=== PATIENT | female | born 2000 | race Caucasian/White ===

== ENCOUNTER 2021-11-24 13:33 | Outpatient (REF) | payer MEDICARE, SELFPAY ==
[2021-11-24 14:17] LABS: COVID-19 Test Negative (Negative)
== END 2021-11-24 13:34 | disposition home or self-care (01) ==
LOC: HO.LAB 13:33
PROVIDERS: Visit Provider Internal Medicine
DX: Z20.822 Contact with and (suspected) exposure to COVID-19 (principal)
CPT/HCPCS: 87635; C9803

== ENCOUNTER 2022-06-18 21:21 | Emergency (ER) | payer MEDICARE, MEDICAID, SELFPAY ==
--- NOTE | ~2022-06-18 | CT_ITS ---
EXAMINATION: NONCONTRAST HEAD CT NONCONTRAST CERVICAL SPINE CT INDICATION INFORMATION: Fall. Neck pain. COMPARISON: None TECHNIQUE: Separate noncontrast CT examinations of the head and cervical spine were performed. Coronal and sagittal images were created for each examination at the technologist workstation. This CT examination was performed using dose optimization techniques as appropriate, variously including the following: *Automated exposure control *Adjustment of mA and/or kV according to patient size (this includes techniques or standardized protocols for targeted exams where dose is matched to indication/reason for exam; i.e. extremities or head) *Use of iterative reconstruction technique DLP: 1371 mGy-cm FINDINGS: Head: There is no evidence of acute intracranial hemorrhage or territorial infarction. No abnormal mass effect or midline shift is seen. Echevarria to white matter differentiation is well preserved. No extra-axial fluid collections are identified. No hydrocephalus. No significant volume loss. There is no abnormal attenuation within the brain parenchyma. No acute osseous or soft tissue abnormality. Mastoid air cells are clear. Secretions present in the bilateral maxillary sinuses. Cervical spine: There is anatomic alignment of the vertebral bodies and posterior elements. The atlantoaxial and atlantooccipital articulations are intact. Vertebral body heights and intervertebral disc spaces are maintained. No evidence of acute fracture. No prevertebral soft tissue swelling. Visualized portions of the lung apices are unremarkable. The thyroid gland is unremarkable. CT/CT cervical spine wo IV con IMPRESSION: * No acute intracranial findings. * No acute fracture or malalignment of the cervical spine.
--- NOTE | ~2022-06-18 | CT_ITS ---
EXAMINATION: NONCONTRAST HEAD CT NONCONTRAST CERVICAL SPINE CT INDICATION INFORMATION: Fall. Neck pain. COMPARISON: None TECHNIQUE: Separate noncontrast CT examinations of the head and cervical spine were performed. Coronal and sagittal images were created for each examination at the technologist workstation. This CT examination was performed using dose optimization techniques as appropriate, variously including the following: *Automated exposure control *Adjustment of mA and/or kV according to patient size (this includes techniques or standardized protocols for targeted exams where dose is matched to indication/reason for exam; i.e. extremities or head) *Use of iterative reconstruction technique DLP: 1371 mGy-cm FINDINGS: Head: There is no evidence of acute intracranial hemorrhage or territorial infarction. No abnormal mass effect or midline shift is seen. Echevarria to white matter differentiation is well preserved. No extra-axial fluid collections are identified. No hydrocephalus. No significant volume loss. There is no abnormal attenuation within the brain parenchyma. No acute osseous or soft tissue abnormality. Mastoid air cells are clear. Secretions present in the bilateral maxillary sinuses. Cervical spine: There is anatomic alignment of the vertebral bodies and posterior elements. The atlantoaxial and atlantooccipital articulations are intact. Vertebral body heights and intervertebral disc spaces are maintained. No evidence of acute fracture. No prevertebral soft tissue swelling. Visualized portions of the lung apices are unremarkable. The thyroid gland is unremarkable. CT/CT head/brain wo IV con IMPRESSION: * No acute intracranial findings. * No acute fracture or malalignment of the cervical spine.
--- NOTE | ~2022-06-18 | CT_ITS ---
EXAMINATION CT CHEST, ABDOMEN AND PELVIS WITHOUT CONTRAST CLINICAL INFORMATION: Trauma COMPARISON: None. TECHNIQUE: Multidetector volumetric CT imaging of the chest, abdomen and pelvis was obtained without use of intravenous contrast. Coronal and sagittal reformats were reviewed. This CT examination was performed using dose optimization techniques as appropriate, variously including the following: *Automated exposure control *Adjustment of mA and/or kV according to patient size (this includes techniques or standardized protocols for targeted exams where dose is matched to indication/reason for exam; i.e. extremities or head) *Use of iterative reconstruction technique DLP: 1872 mGy-cm. FINDINGS: CHEST LUNGS/PLEURA: The lungs are clear with no evidence of inflammation or nodules. Trace right pleural effusion. MEDIASTINUM/MUKESH: Heart normal in size without pericardial effusion. Great vessels normal caliber. No mediastinal, hilar or supraclavicular lymphadenopathy. CHEST WALL/AXILLA: Unremarkable. ABDOMEN/PELVIS HEPATOBILIARY: Liver normal in size, contour and morphology. No suspicious lesions. No intra or extrahepatic biliary dilation. Gallbladder unremarkable. PANCREAS: Unremarkable. SPLEEN: Unremarkable. ADRENAL GLANDS: Unremarkable. KIDNEYS, URETERS AND BLADDER: Kidneys normal in size, axis and morphology. No hydronephrosis or urinary calculi. Ureters normal in course and caliber. Bladder grossly unremarkable.. GASTROINTESTINAL TRACT: No bowel related abnormalities. PELVIC VISCERA: There is a 4.3 cm right adnexal soft tissue in bulk fat containing mass with associated coarse calcifications most compatible with a dermoid. Anterior to the uterus are 2 adjacent simple cysts versus a single large complex cyst containing a thin septation. If area representative of 2 cysts, the cysts measure 10.1 cm and 3.5 cm. If area representative of a single septate cyst, and measures up to 11.4 cm. This finding is too large to ascertain which adnexa it arises from. LYMPH NODES: No lymphadenopathy. PERITONEUM/BODY WALL: Unremarkable. VASCULAR STRUCTURES: Unremarkable for age. OSSEOUS STRUCTURES No acute or suspicious osseous abnormalities. Bilateral L5 spondylolysis without spondylolisthesis. Small endplate osteophytes present at L5-S1. There is sclerosis along the bilateral sacroiliac joints and accompanying vacuum phenomena. No erosive changes. CT/CT abdomen pelvis wo IV con IMPRESSION: * No acute traumatic injury within the chest, abdomen or pelvis. * No fractures. * Trace right pleural effusion. * There are 2 adjacent simple cysts versus a single large thinly septated cyst anterior to the uterus measuring up to 11.4 cm. There is concern for low-grade cystic neoplasm. Recommend gynecology consult and MRI pelvis with contrast if clinically warranted. Ultrasound will be unable to fully characterize these lesions due to their large size. * In addition, there is a 4.3 cm right adnexal dermoid. Attention on follow-up MRI. If not resected, the ACR recommends annual follow-up for dermoids of this size. * Bilateral chronic sacroiliac arthrosis and/or sacroiliitis.
--- NOTE | ~2022-06-18 | CT_ITS ---
EXAMINATION CT CHEST, ABDOMEN AND PELVIS WITHOUT CONTRAST CLINICAL INFORMATION: Trauma COMPARISON: None. TECHNIQUE: Multidetector volumetric CT imaging of the chest, abdomen and pelvis was obtained without use of intravenous contrast. Coronal and sagittal reformats were reviewed. This CT examination was performed using dose optimization techniques as appropriate, variously including the following: *Automated exposure control *Adjustment of mA and/or kV according to patient size (this includes techniques or standardized protocols for targeted exams where dose is matched to indication/reason for exam; i.e. extremities or head) *Use of iterative reconstruction technique DLP: 1872 mGy-cm. FINDINGS: CHEST LUNGS/PLEURA: The lungs are clear with no evidence of inflammation or nodules. Trace right pleural effusion. MEDIASTINUM/MUKESH: Heart normal in size without pericardial effusion. Great vessels normal caliber. No mediastinal, hilar or supraclavicular lymphadenopathy. CHEST WALL/AXILLA: Unremarkable. ABDOMEN/PELVIS HEPATOBILIARY: Liver normal in size, contour and morphology. No suspicious lesions. No intra or extrahepatic biliary dilation. Gallbladder unremarkable. PANCREAS: Unremarkable. SPLEEN: Unremarkable. ADRENAL GLANDS: Unremarkable. KIDNEYS, URETERS AND BLADDER: Kidneys normal in size, axis and morphology. No hydronephrosis or urinary calculi. Ureters normal in course and caliber. Bladder grossly unremarkable.. GASTROINTESTINAL TRACT: No bowel related abnormalities. PELVIC VISCERA: There is a 4.3 cm right adnexal soft tissue in bulk fat containing mass with associated coarse calcifications most compatible with a dermoid. Anterior to the uterus are 2 adjacent simple cysts versus a single large complex cyst containing a thin septation. If veterans employment representative of 2 cysts, the cysts measure 10.1 cm and 3.5 cm. If veterans employment representative of a single septate cyst, and measures up to 11.4 cm. This finding is too large to ascertain which adnexa it arises from. LYMPH NODES: No lymphadenopathy. PERITONEUM/BODY WALL: Unremarkable. VASCULAR STRUCTURES: Unremarkable for age. OSSEOUS STRUCTURES No acute or suspicious osseous abnormalities. Bilateral L5 spondylolysis without spondylolisthesis. Small endplate osteophytes present at L5-S1. There is sclerosis along the bilateral sacroiliac joints and accompanying vacuum phenomena. No erosive changes. CT/CT chest wo IV con IMPRESSION: * No acute traumatic injury within the chest, abdomen or pelvis. * No fractures. * Trace right pleural effusion. * There are 2 adjacent simple cysts versus a single large thinly septated cyst anterior to the uterus measuring up to 11.4 cm. There is concern for low-grade cystic neoplasm. Recommend gynecology consult and MRI pelvis with contrast if clinically warranted. Ultrasound will be unable to fully characterize these lesions due to their large size. * In addition, there is a 4.3 cm right adnexal dermoid. Attention on follow-up MRI. If not resected, the ACR recommends annual follow-up for dermoids of this size. * Bilateral chronic sacroiliac arthrosis and/or sacroiliitis.
[2022-06-18 21:22] VITALS: BP 157/89; PULSE 97; RESP 16; TEMP 36.6; O2SAT 97; BMI 48.0
--- OUTSIDE RECORDS SUMMARY | 2022-06-18 22:37 | XMS_ITS | Continuity of Care Document ---
Author Name Unknown Organization [facility] ter Address [address] [place] [id number]- Care Team Providers Care Qualitative Field Project Manager Name Role Phone Timothy DU, Stephanie Vasquez Primary Care Physician Encounter [facility] Date(s): 10/24/19 - 10/25/[address] [id number]- [facility] Discharge Disposition: A-D/C Walkout Attending Physician: Not on Staff, Attending MD Admitting Physician: Not on Staff, Admitting MD Referring Physician: Not on Staff, Referring MD Allergies, Adverse Reactions, Alerts Substance Reaction Severity Status NKA Active Immunizations Given and Recorded Vaccine Date Status Refusal Reason influenza virus vaccine, inactivated 12/18/13 Give n influenza virus vaccine, inactivated 12/06/12 Give n influenza virus vaccine, inactivated 1 01/30/10 Gi gris Human Papillomavirus Vaccine 01/06/13 Given Human Papillomavirus Vaccine 09/05/12 Given Human Papillomavirus Vaccine 2 07/04/12 Given tetanus/diphtheria/pertussis, acel(Tdap) 01/06/13 Given Meningococcal Conjugate Vaccine 01/06/13 Given pneumococcal 13-valent vaccine 3 07/04/12 Given Varicella Virus Vaccine 4 06/06/10 Given Varicella Virus Vaccine 03/15/01 Given influ virus vac, H1N1, inactive(oldterm) 5 03/26/09 Given influ virus vac, H1N1, inactive(oldterm) 6 01/28/09 Given Influenza Vaccine (oldterm) 7 01/28/09 Given Influenza Inactive (IM) (oldterm) 02/10/06 Given Measles/Mumps/Rubella Virus Vaccine 01/28/05 Given Measles/Mumps/Rubella Virus Vaccine 03/15/01 Given Haemophilus B conjugate (HbOC) vaccine 01/28/05 Gi gris Haemophilus B conjugate (HbOC) vaccine 00 Gi gris Haemophilus B conjugate (HbOC) vaccine 00 Gi gris Haemophilus B conjugate (HbOC) vaccine 00 Gi gris Poliovirus Vaccine, Inactivated 01/28/05 Given Poliovirus Vaccine, Inactivated 00 Given Poliovirus Vaccine, Inactivated 00 Given Poliovirus Vaccine, Inactivated 00 Given diphtheria/tetanus/pertussis, acel(DTaP) 01/28/05 Given diphtheria/tetanus/pertussis, acel(DTaP) 10/12/01 Given diphtheria/tetanus/pertussis, acel(DTaP) 00 Given diphtheria/tetanus/pertussis, acel(DTaP) 00 Given diphtheria/tetanus/pertussis, acel(DTaP) 00 Given Hepatitis B Vaccine (old term) 10/12/01 Given Hepatitis B Vaccine (old term) 00 Given Hepatitis B Vaccine (old term) 00 Given pneumococcal 7-valent vaccine 00 Given pneumococcal 7-valent vaccine 00 Given pneumococcal 7-valent vaccine 00 Given 1Admin Note: VIS GIVEN 2Admin Note: VIS Date: 05-06-11 3Admin Note: VIS Date: 01/29/2012 4Admin Note: vis 05/26/07 5Admin Note: VIS GIVEN [id number] 6Admin Note: VIS GIVEN 2008 7Admin Note: VIS GIVEN 2008- Medications Aerochamber See Instructions, # 1 each, Maintenance, Use with albuterol MDI, 06/10/17 16:08:04 EDT, Compound Start Date: 06/10/17 Status: Ordered albuterol CFC free 90 mcg/inh inhalation aerosol 2, puffs, Inhalation, Every 4 hours, PRN, # 8 Gm, Refills 0, Maintenance, 06/10/17 13:46:59 EDT, Aerosol, Compound Start Date: 06/10/17 Status: Ordered albuterol CFC free 90 mcg/inh inhalation aerosol 2, puffs, Inhalation, Every 4 hours, PRN, # 1 each, Refills 0, Tot. Refills 0, Maintenance, 06/10/17 16:07:56 EDT, Aerosol, Print Requisition, Compound Start Date: 06/10/17 Status: Ordered Bentyl 10 mg oral capsule 1 capsule = 10 mg, By Mouth, 2 times a day, # 60 capsule, 6 Refills, Maintenance, 08/02/17 9:20:27 EDT Start Date: 08/02/17 Stop Date: 02/28/18 Status: Ordered ibuprofen 600 mg oral tablet 1 tablet = 600 mg, By Mouth, Every 8 hours, # 30 tablet, 0 Refills, Maintenance, Tablet Start Date: 11/23/12 Status: Ordered Loratadine 10 mg, By Mouth, Daily, Refills 0, Maintenance, 03/03/17 12:50:27 EST Start Date: 03/03/17 Status: Ordered Sertraline = 75 mg, By Mouth, Daily, 0 Refills, Maintenance, 03/03/17 12:50:13 EST Start Date: 03/03/17 Status: Ordered Problem List Condition Effective Dates Status Health Status Inform ant Abdominal pain(Confirmed) Active Acute depression(Confirmed) Active Asperger syndrome dx by Dr. Griffith July 2011(Confirmed) Active Asperger's syndrome(Confirmed) Active Asthma(Confirmed) Active Central obesity(Confirmed) Active Mild intermittent asthma(Confirmed) Active Obesity(Confirmed) Active Seasonal allergy(Confirmed) Active Sleep disorder breathing(Confirmed) Active Vital Signs Most recent to oldest [Reference Range]: 1 2 Oxygen Saturation [94-100 %] 100 % (10/24/19 11:07 PM) 100 % (10/24/19 8:59 PM) Pulse Rate [55-90 bpm] 93 bpm *H* (10/24/19 11:07 PM) 108 bpm *H* (10/24/19 8:59 PM) Blood Pressure [90-138/55-84 mm Hg] 138/ 91mm Hg (10/24/19 11:07 PM) 148/102mm Hg *H* (10/24/19 8:59 PM) Respiratory Rate [16-30 br/min] 16 br/mi n (10/24/19 11:07 PM) 22 br/min (10/24/19 8:59 PM) Temperature [96.8-100.4 DegF] 99.1 DegF (10/24/19 11:07 PM) 98.9 DegF (10/24/19 8:59 PM) Mode of Delivery (Oxygen) Room air (10/24/19 11:07 PM) room air (10/24/19 8:59 PM) Blood pressure sites Arm, right (10/24/19 11:07 PM) Arm, right (10/24/19 8:59 PM) Temperature Route Oral (10/24/19 11:07 PM) Oral (10/24/19 8:59 PM) Social History Social History Type Response Smoking Status Never smoker; Tobacc o user in household: Yes entered on: 08/02/17 Sex
--- NOTE | 2022-06-18 22:44 | ED_ITS ---
HPI - Head Injury General Chief complaint: Head Injury Stated complaint: fell hit head 4/6 Time Seen by Provider: 06/18/22 22:26 Source: patient Mode of arrival: ambulatory Limitations: no limitations History of Present Illness HPI Narrative: This is a 22-year-old female history of obesity presenting to the emergency department status post slip and fall while getting out of the shower, patient tells me she slipped and then tripped on a dust ramirez, she hit her head and lost consciousness for a few minutes woke up on the ground. Was able to get up on her own. No one witnessed this. Patient tells me she is having a pounding headache with associated nausea and intermittent blurred vision. Patient not on blood thinners. She tells me her whole body feels sore. Denies any preceding symptoms such as chest pain, shortness of breath and dizziness prior to fall. At this time patient denies chest pain, shortness of breath, vision changes, dizziness, weakness, dysarthria, dysphagia, vomiting, abdominal pain, changes in bowel habits, back pain, urinary/bowel incontinence or retention. GCS 15. NIH stroke scale 0 on arrival Related Data Previous Rx's Medication Instructions Recorded ketorolac 10 mg tablet 10 mg PO TID PRN pain 5 days #15 06/19/22 tabs Allergies Allergy/AdvReac Type Severity Reaction Status Date / Time Unable to Assess Allergy Unverified 06/18/22 22:38 Review of Systems Review of Systems: Constitutional : No Weight loss, No Fever, No Chills, No Fatigue, No Malaise ENT/Mouth : No sore throat, No Rhinorrhea Eyes: No Eye Pain, No Swelling, No Redness Cardiovascular : No Chest Pain, No SOB, No Dyspnea on Exertion, No Orthopnea, No Edema, No Palpitations Respiratory : No Cough, No Sputum, No Wheezing Gastrointestinal : No Nausea, No Vomiting, No Diarrhea, No Constipation, No abdominal Pain, No Hematochezia, No Melena Genitourinary : No Dysuria, No Urinary Frequency, No Hematuria, Musculoskeletal : No joint pain, No Myalgias, No Joint Swelling Skin : No Skin Lesions, No rash Neuro : No Weakness, No Numbness, No Dizziness, + Headache Psych : No Anxiety/Panic, No Depression All other systems reviewed and are negative Yes all other systems are reviewed and are negative [facility] Past Medical History Attestation statement: The following information was validated with the patient. Source: old records reviewed and nursing notes reviewed Social History Social History Advance Directives: No Advance Directives Information Provided: Yes Physical Exam Vital Signs: Vital Signs: Last Vital Signs Temp 98.5 F 06/18/22 22:51 Pulse 85 06/18/22 22:51 Resp 17 06/18/22 22:51 BP 138/64 06/18/22 22:51 Pulse Ox 94 06/18/22 22:51 O2 Del Method Room Air 06/18/22 22:51 BMI result Body Mass Index 48.0 vss Appearance: Alert.? Oriented X3.? No acute distress.? Head: Normocephalic, atraumatic, no step-offs or deformities Eyes: Pupils equal, round and reactive to light. EOMI and pain free, no nystagmus Neck: Normal inspection.? Neck supple.? CVS: Normal heart rate and rhythm.? Pulses normal.? Respiratory: No respiratory distress.? Breath sounds normal.? Abdomen: Soft and nontender.? Skin: Skin warm and dry.? Normal skin color.? Normal skin turgor.? Extremities: No lower extremity edema.? No calf ttp. 5/5 strength to bilateral upper and lower extremities Back: No midline tenderness, no C-spine tenderness, full range of motion, no CVA tenderness bilaterally Neuro: Oriented X 3.? No motor deficit.? No sensory deficit. CN 2-12 intact. Normal finger to nose, heel to mendez, steady tandem gait w/normal coordination. Negative Romberg and pronator drift. Course Reevaluation(s) Reevaluation #1: Head CT with no acute findings. No acute findings in cervical spine. No tra umatic injuries in the chest abdomen or pelvis. No fractures. Trace right pleural effusion. Trace to adjacent simple cyst versus a single large thinly septated anterior to the uterus measuring 11.4 cm low-grade cystic neoplasm is on the differential. 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 Attached results or discharge advised her to follow-up with OBGYN as soon as possible. Educated patient on diagnosis and treatment plan, answered all question, patient verbalizes understanding. At this time patient will be discharged home, advised to return with new or worsening symptoms. Educated on worrisome signs and symptoms and when to return. At this time I feel comfortable discharge home. Time: 01:25 Medications Administered Discontinued Medications Generic Name Dose Route Start Last Admin Trade Name Nitin PRN Reason Stop Dose Admin Ketorolac Tromethamine 30 mg 06/19/22 00:11 06/19/22 00:36 Ketorolac Tromethamine 30 Mg/Ml Vial IM 06/19/22 00:12 30 mg ONCE ONE Administration Medical Decision Making Medical Decision Making [facility] Narrative: 2239 22 year old female presents s/p slip and fall in bathroom at home with reported LOC for a few minutes. Reprots headache, nausea, blurred vision. Not on thinners Pe benign NIHSS 0, GCS 15 Likely a concussion. Unlikely intracranial hemorrhage, stroke, posterior str hussain, fractures or dislocations. Low suspicion for traumatic injuries to chest, abdomen or pelvis. Although CT with IV contrast is preferred will obtain dry scan as I have low suspicion for any internal bleeding. Plan CT scan. Differential Diagnosis Differential Diagnoses: The differential diagnosis associated with the presentation includes Likely a concussion. Unlikely intracranial hemorrhage, stroke, posterior stroke, fractures or dislocations. Low suspicion for traumatic injuries to chest, abdomen or pelvis. Although CT with IV contrast is preferred will obtain dry scan as I have low suspicion for any internal bleeding. Admission/Observation Consideration of admission/observation: Escalation of care including admission/observation considered Not indicated Lab Data [facility] Lab Attestation statement: I reviewed the patient's lab results. Labs: Lab Results 06/18/22 Range/Units 23:45 Urine Test NEGATIVE (NEGATIVE) Independent Interpretation I performed an independent interpretation of an: CT Scan (Large cysts around uterus noted. Otherwise no acute trauma to chest, abdomen pelvis, head or cervical spine) Radiology Impression Discussion of test interpretation with radiology: I have reviewed the radiologist's reading. Core Measures AMI core measures followed: Yes Measure exclusions: not indicated Critical Care Time Critical Care Time Critical Care Time: No Discharge Plan Discharge Clinical Impression: Closed head injury, Concussion with loss of consciousness, Cyst, uterus Patient Disposition: Home, Self-Care Instructions: Concussion (ED), Head Injury (ED), Post Concussion Syndrome (ED) Additional Instructions: Take your medications as prescribed. If you were prescribed antibiotics today, it is important that you take your medication to their entirety, do not skip any doses, do not finish them early. Follow-up with your primary care provider this week. Follow-up with OBGYN as soon as possible Return to the emergency department with new or worsening symptoms. Such as fevers, chills, chest pain, shortness of breath, nausea, vomiting, dizziness, headache, vision changes, lethargy In case of emergency call 911 Please limit screen time. Do not participate in any sports or strenuous exercise until medically cleared Please look out for signs and symptoms post concussive syndrome. Return if any of these arise. Symptoms include nausea, vomiting, headache, vision changes, dizziness, weakness, altered mental status, difficulties with speech, or any new or worsening symptoms Toradol has been sent to your pharmacy, you tolerated this well in the department. Please take this as prescribed do not take this with ibuprofen, or other NSAIDs, do not mix this with alcohol. Side effects of this medication including increased risk for bleeding and possible kidney injury. Your CT scan showed an abnormal cyst that requires prompt follow-up with OBGYN as soon as possible I have given you information on how to reach out to OBGYN, we do have an OBGYN department here you can call to schedule an appointment information below. CT/CT head/brain & cervical spine wo IV con IMPRESSION: *? No acute intracranial findings. *? No acute fracture or malalignment of the cervical spine. ? CT/CT abdomen pelvis wo IV con IMPRESSION: *? No acute traumatic injury within the chest, abdomen or pelvis. *? No fractures. *? Trace right pleural effusion. *? There are 2 adjacent simple cysts versus a single large thinly septated cyst anterior to the uterus measuring up to 11.4 cm. There is concern for low-grade cystic neoplasm. Recommend gynecology consult and MRI pelvis with contrast if clinically warranted. Ultrasound will be unable to fully characterize these lesions due to their large size. *? In addition, there is a 4.3 cm right adnexal dermoid. Attention on follow-up MRI. If not resected, the ACR recommends annual follow-up for dermoids of this size. *? Bilateral chronic sacroiliac arthrosis and/or sacroiliitis. ? Prescriptions: New ketorolac 10 mg tablet 10 mg PO TID PRN (Reason: pain) 5 Days Qty: 15 0RF Referrals: Physician,Unknown J [Primary Care Provider] - 2 days Ace Gonzalez MD [Physician] - 2 days Stand Alone Forms: Work/School Release Interventions: ED Discharge Assessment Last Done: 06/18/22 23:49
[2022-06-18 22:51] VITALS: BP 138/64; PULSE 85; RESP 17; TEMP 36.9; O2SAT 94
[2022-06-18 23:55] LABS: UPreg QC Valid YES; Urine Pregnancy NEGATIVE (NEGATIVE)
[2022-06-19] MEDS: Ketorolac Tromethamine 30 MG/ML VIAL IM (00:36)
== END 2022-06-19 02:04 | disposition home or self-care (01) ==
PROVIDERS: Physician Assistant; Emergency Provider Emergency Medicine Emergency Medical Services
DX: S06.0XAA Concussion with loss of consciousness status unknown, initial encounter (principal); R51.9 Headache, unspecified; M54.2 Cervicalgia; R10.2 Pelvic and perineal pain; R07.9 Chest pain, unspecified; M54.6 Pain in thoracic spine; N85.8 Other specified noninflammatory disorders of uterus; W18.2XXA Fall in (into) shower or empty bathtub, initial encounter; Y93.E1 Activity, personal bathing and showering; Y92.002 Bathroom of unspecified non-institutional (private) residence as the place of occurrence of the external cause; Y99.9 Unspecified external cause status; Z79.899 Other long term (current) drug therapy
CPT/HCPCS: 70450; 71250; 72125; 74176; 81025; 96372; 99283; 99284; J1885